=== PATIENT | male | born 1960 | race Caucasian/White ===

== ENCOUNTER 2019-06-30 16:57 | Observation (INO) | payer OTHER ==
[2019-06-30 17:49] LABS: #Basophils 0.1 thou/uL (0.0-0.2); #Eosinphils 0.1 thou/uL (0.0-0.7); #Lymphocytes 3.4 thou/uL (1.20-3.40); #Monocytes 1.1 thou/uL (0.11-0.59); #Neutrophils 5.9 thou/uL (1.40-6.50); %Basophils 0.8 % (0.0-1.0); %Eosinophils 1.1 % (0.0-10.0); %Lymphocytes 31.9 % (21.0-51.0); %Monocytes 10.7 % (0.0-10.0); %Neutrophils 55.5 % (42.0-75.0); Hemoglobin 15.9 g/dL (14.0-18.0); Mean Corpuscular Hemoglobin 30.7 pg (27.0-31.0); Mean Corpuscular Volume 90.2 fL (78.0-98.0); Mean Platelet Volume 8.6 fL (7.4-10.4); Platelet Count 266 thou/uL (130-400); RBC Distribution Width 12.9 % (11.5-14.5); Red Blood Cell (RBC) Count 5.18 mill/uL (4.70-6.10); White Blood Cell (WBC) Count 10.6 thou/uL (4.8-10.8)
[2019-06-30] MEDS ORDERED: Nitroglycerin 2% Ointment 1 INCH/1 GM Packet ONE (17:49)
[2019-06-30] MEDS ORDERED: Aspirin Chewable 81 MG TAB ONE (17:49)
--- NOTE | 2019-06-30 18:06 | RAD ---
EXAM: CHEST ONE VIEW HISTORY: Chest pain and shortness of breath. Low heart rate. Lightheadedness. COMPARISON: 09/05/2015 FINDINGS: Cardiac silhouette is magnified by projection but does appear mildly enlarged. The pulmonary vasculat ure is within normal limits. The lungs are clear. The osseous structures are intact. IMPRESSION: 1. No acute cardiopulmonary process. 2. Mild cardiomegaly.
[2019-06-30 18:09] LABS: ALT (SGPT) 27 U/L (8-55); AST (SGOT) 18 U/L (5-34); Albumin 4.3 g/dL (3.5-5.0); Alkaline Phosphatase 86 U/L (40-110); Anion Gap 15 mmol/L (10-20); BUN (Urea Nitrogen) 17 mg/dL (8.4-25.7); Bilirubin, Total 0.4 mg/dL (0.2-1.2); CK (CPK) 158 U/L (30-200); Calc. Creatinine Clearance 0 mL/min (70-130); Calcium 9.3 mg/dL (7.8-10.44); Carbon Dioxide 23 mmol/L (22-29); Chloride 105 mmol/L (98-107); Estimated GFR-MDRD 57; Globulin 2.6 g/dL (2.4-3.5); Glucose 146 mg/dL (70-105); Lipase 44 U/L (8-78); Potassium 3.8 mmol/L (3.5-5.1); Protein, Total 6.9 g/dL (6.0-8.3); Sodium 139 mmol/L (136-145)
[2019-06-30 20:55] VITALS: BMI 48.9
[2019-06-30] MEDS ORDERED: Ondansetron PF 4 MG/2 ML Vial IVP PRN ×2 (21:18→22:06)
[2019-06-30] MEDS ORDERED: Ondansetron ODT 4 MG TAB SL PRN (21:18)
[2019-06-30] MEDS ORDERED: Acetaminophen 325 MG TAB PO PRN (22:06)
[2019-06-30] MEDS ORDERED: Acetaminophen 650 MG Suppository PR PRN (22:06)
[2019-06-30] MEDS ORDERED: Ondansetron ODT 4 MG TAB PO PRN (22:06)
[2019-06-30] MEDS ORDERED: hydrALAZINE 20 MG/ML VIAL SLOW IVP PRN (22:21)
[2019-06-30] MEDS ORDERED: Dextrose 50% Abboject 50 ML SYRINGE SLOW IVP PRN (22:23)
[2019-06-30] MEDS ORDERED: HumaLOG 300 UNITS/3 ML VIAL SC PRN ×2 (22:23)
[2019-06-30] MEDS ORDERED: Dextrose 5% in Water 1,000 ML IV PRN (22:23)
[2019-06-30 22:24] LABS: Troponin I Less than 0.010 ng/mL (< 0.028)
[2019-06-30 22:54] LABS: Lactic Acid 1.3 mmol/L (0.5-2.2)
[2019-06-30] MEDS: Sodium Chloride 0.9% 1,000 ML IV SCH (23:06)
--- NOTE | 2019-06-30 23:52 | HP ---
CHIEF COMPLAINT: Low heart rate and occasional lightheadedness. HISTORY OF PRESENT ILLNESS: Mr. Aden Pierre is a 59-year-old gentleman, who presented to the emergency department due to concerns of very low heart rate. The patient states he was at home and had felt slightly short of breath, which prompted him to check his pulse ox, which he states was 94% on room air. However, he noted his heart rate was in the low 40s. He went to an urgent care center and had his heart rate checked and again it was in the 40s. The patient states he has felt occasionally lightheaded for the last several weeks. Denies having any chest pain or palpitations. No syncopal episodes. He states he is normally short of breath and has not noted a significant difference recently. Denies any cough or hemoptysis. No recent fevers, chills, or sweats. All other review of systems are negative. His travel pta is Dr. Reeves, whom he has not seen in quite some time according to the patient. In the emergency department, he underwent an EKG, which showed normal sinus rhythm with a heart rate of 79. He was noted to have premature supraventricular complexes with normal ST segments and normal T-waves. According to the ED note, it states that a CT chest was done; however, notes charted and medications were for a completely different patient. This is being corrected by the ED charge nurse. The patient did not undergo any imaging or treatment in the emergency department. He did have laboratory studiesdone, which showed a white count of 10.6, hemoglobin of 15.9, hematocrit of 46.8, platelets 266, and neutrophils 55.5%. D-dimer negative. Sodium 139, potassium 3.8, BUN 17, creatinine 1.30, GFR 57, glucose 146, lactic acid 1.3, calcium 9.3, magnesium 2.3, total bilirubin 0.4, AST 18, ALT 27, alkaline phosphatase 86, and CK 158. Troponin negative x2. BNP 34.3, total protein 6.9, albumin 4.3, and lipase 44. Chest x-ray was done, showing no acute cardiopulmonary process and mild cardiomegaly. PAST MEDICAL HISTORY: 1. Atrial fibrillation. 2. Hypertension. 3. Diabetes mellitus. 4. Obesity. 5. Hyperlipidemia. PAST SURGICAL HISTORY: UVP3, hernia, heart catheterization in 1999 and 2000, tonsillectomy and adenoidectomy. SOCIAL HISTORY: The patient denies any alcohol consumption, tobacco use, or illicit drug use. He lives with his . ALLERGIES: NO KNOWN DRUG ALLERGIES. CURRENT MEDICATIONS: 1. Lotrel. 2. Lipitor. 3. Linagliptin/empagliflozin. 4. Losartan. 5. Metformin. 6. Toprol-XL. PHYSICAL EXAMINATION: GENERAL: The patient appears well-developed, well-nourished, is in no acute distress. VITAL SIGNS: Temperature 98.1, pulse 65, blood pressure 106/59, respirations 16 , and O2 saturation 94% on room air. HEENT: Normocephalic and atraumatic. Pupils are equal, round, and reactive to light. Sclerae icterus. Oropharynx is clear. NECK: Supple without lymphadenopathy. LUNGS: Clear to auscultation bilaterally without wheezes, rales, or rhonchi. CARDIAC: Regular rate and rhythm. ABDOMEN: Soft, obese, nontender, and nondistended. Normoactive bowel sounds present. EXTREMITIES: No lower leg swelling or edema. NEUROLOGIC: Alert and oriented x3. SKIN: Without rash or jaundice. INVESTIGATIONS: As mentioned above in HPI. IMPRESSION AND PLAN: Mr. Pierre is a 59-year-old gentleman, who presents with shortness of breath and symptomatic bradycardia. He has been experiencing occasional lightheadedness. He does not always check his heart rate and he just happened to check it because of slight shortness of breath, requiring him to use his pulse ox. Sats were 94% on room air, and the heart rate had dropped to the 40s. He states his blood pressure is under good control with current regimen and deviating from that causes his blood pressure to go up to the 240s systolic range. The patient is adamant about his heart rate not normally being this low and typically being in the 80s. He did seem to be reluctant about staying in the hospital and is being seen by his travel pta, Dr. Reeves; however, he also expressed concerns about his bradycardia. The patient states it has been a few years since he last saw Dr. Reeves. He is asymptomatic at this present time. We will obtain an echo and orthostatic blood pressures. He will be on continuous telemetry monitoring. Consultation has been placed to Dr. Reeves and we will hold metoprolol for now. Code status, full. His surrogate decision maker is his , Marine Pierre. We will monitor his blood glucose and cover with an insulin sliding scale. We will use p.r.n. hydralazine to help control his blood pressure and resume antihypertensives once verified. Monitor blood pressure. The patient's case was discussed with Dr. Daley, who agrees with plan of care as described above. Job ID: [id number] MTDD
[2019-07-01 01:46] LABS: Troponin I Less than 0.010 ng/mL (< 0.028)
[2019-07-01 04:40] LABS: #Basophils 0.1 thou/uL (0.0-0.2); #Eosinphils 0.2 thou/uL (0.0-0.7); #Lymphocytes 3.5 thou/uL (1.20-3.40); #Monocytes 1.1 thou/uL (0.11-0.59); #Neutrophils 5.1 thou/uL (1.40-6.50); %Basophils 0.5 % (0.0-1.0); %Eosinophils 1.7 % (0.0-10.0); %Lymphocytes 35.5 % (21.0-51.0); %Neutrophils 51.2 % (42.0-75.0); Hemoglobin 14.9 g/dL (14.0-18.0); Mean Corpuscular HGB CONC 32.8 g/dL (32.0-36.0); Mean Corpuscular Hemoglobin 30.2 pg (27.0-31.0); Mean Corpuscular Volume 91.8 fL (78.0-98.0); Mean Platelet Volume 9.1 fL (7.4-10.4); Platelet Count 238 thou/uL (130-400); RBC Distribution Width 13.1 % (11.5-14.5); Red Blood Cell (RBC) Count 4.93 mill/uL (4.70-6.10); White Blood Cell (WBC) Count 9.9 thou/uL (4.8-10.8)
[2019-07-01 04:58] LABS: Anion Gap 15 mmol/L (10-20); BUN (Urea Nitrogen) 17 mg/dL (8.4-25.7); Calc. Creatinine Clearance 198 mL/min (70-130); Carbon Dioxide 22 mmol/L (22-29); Chloride 107 mmol/L (98-107); Estimated GFR-MDRD 78; Glucose 125 mg/dL (70-105); Sodium 140 mmol/L (136-145)
[2019-07-01] MEDS ORDERED: metFORMIN 500 MG TAB PO SCH (08:00)
[2019-07-01] MEDS ORDERED: Famotidine/PF 20 mg/2ml Vial SLOW IVP SCH (09:00)
[2019-07-01] MEDS ORDERED: Losartan 25 MG TAB PO SCH (09:00)
[2019-07-01] MEDS ORDERED: Amlodipine 5 mg/Benazepril 10 mg CAP PO SCH (09:00)
[2019-07-01] MEDS ORDERED: EMPAGLIFLOZIN PO SCH (09:00)
[2019-07-01] MEDS ORDERED: Atorvastatin Calcium 20 MG TAB PO SCH (09:00)
[2019-07-01] MEDS ORDERED: [UNRECOGNIZED DRUG - OTHER] PO SCH (09:00)
[2019-07-01] MEDS ORDERED: LINAGLIPTIN PO SCH (09:00)
--- NOTE | 2019-07-01 12:18 | CON ---
DATE OF CONSULTATION: 07/01/2019 INDICATION FOR CONSULTATION: A 59-year-old gentleman with bradycardia. HISTORY OF PRESENT ILLNESS: This 59-year-old gentleman said he had some heart rates in the 40s at home. He went to the urgent care center and also the heart rate was still in the 40s. He was sent to the emergency room. In the emergency room showed a heart rate in the 70s. He did complain of some lightheadedness and always says he is short of breath, but with the heart rate in the 40s, he did become more lightheaded. He did undergo cardiac catheterization in 2006, which showed small vessels. The LAD had no stenosis. It was a small vessel. The left circumflex also was a small vessel, had a 40% mid stenosis and distal stenosis of 50%. The right coronary was a large vessel with 20% stenosis. The left ventricular function was normal. He apparently had an echocardiogram several years ago in the office, which was also apparently normal. He has not been complaining of any chest discomfort. He does have hypertension as well as diabetes. PAST MEDICAL HISTORY: Significant for atrial fibrillation. He has had a hernia repair. He had a cardiac catheterization in 2000. He has a history of tonsils and adenoidectomy, has a history of hypertension, hypercholesterolemia. He has had cataract surgery. 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 SOCIAL HISTORY: He has no alcohol or tobacco abuse. FAMILY HISTORY: Noncontributory. ALLERGIES: NONE. MEDICATIONS: Prior to admission include metoprolol 100 mg once a day, metformin 750 mg b.i.d., amlodipine/benazepril or Lotrel 5/10 once a day. He is also taking Cozaar or losartan 50 mg a day and atorvastatin 20 mg a day. ALLERGIES: NONE. REVIEW OF SYSTEMS: A 12-point review of systems unremarkable except noted in the history of present illness. PHYSICAL EXAMINATION: GENERAL: Reveals a middle-aged morbidly obese gentleman. VITAL SIGNS: Blood pressure is 128/82, earlier was 106/59, heart rate is 60 and regular. He has been anywhere between 50-65 since being on the floor. Respiratory rate is 14. He is afebrile. HEENT: Shows head to be normocephalic and atraumatic. NECK: Carotid pulses are present. Did not hear any bruits. There is no obvious JVD. CHEST: Clear to auscultation. CARDIOVASCULAR: Reveals a regular rate and rhythm at this time. I do not hear any gross murmurs, heaves, thrills, bruits, or rubs. ABDOMEN: Shows morbid obesity. I am unable to palpate any tenderness or masses. EXTREMITIES: Show no clubbing, cyanosis, or edema. Pedal pulses are present. NEUROLOGIC: The patient appears to be fully intact. There are no gross focal motor deficits noted. SKIN: Warm and dry. DIAGNOSTIC STUDIES: EKG shows a normal sinus rhythm with an incomplete right bundle-branch block and occasional PACs. LABORATORY DATA: Shows a WBC of 9.9, hemoglobin 14.9, BUN was 17, creatinine is 0.98, potassium was 4, and sodium was 140, and blood sugar was 125. IMPRESSION: 1. Elderly gentleman with a history of coronary artery disease, diabetes, hypertension, hypercholesterolemia, who has now developed some bradycardia, which may be due to the dose of the metoprolol. We will certainly decrease the dose of metoprolol. He is somewhat reluctant to stop this medication due to his history of atrial fibrillation in the past. He thinks he may have had occasional short episodes of atrial fibrillation since it was diagnosed back in 2000. He has not had any other antiarrhythmics. He did have evaluation by steaming cabinet tender many years ago and there was some consideration given to an ablation, but after reconsideration, the ablation was not done and he has been maintained on medical management. At this time, I would at least decrease the dose of the metoprolol and see whether or not the heart rate will improve. He may need to stop the beta queenie and try another medication. However, with his history of coronary artery disease, we will try to continue the beta blockers. He may need to also undergo stress testing or cardiac catheterization due to his history of small vessel disease in the past as well as the stenosis noted in the left circumflex and right coronary artery, which was performed almost 13 years ago. We will first obtain an echocardiogram for evaluation of left ventricular systolic function and then we will await the results of this and then make decisions as to whether or not he will need to proceed with cardiac catheterization. He is 381 pounds, it is somewhat difficult to do stress testing. Obviously, would have to be a nuclear study, will be a 2-day protocol. It may be best to proceed with cardiac catheterization in this gentleman as a more definitive tool to evaluate for coronary artery disease. 2. History of diabetes. This is dealt with by the primary care service. 3. Hypertension, this is under good control at this time. We may need to change or find some other medication to control the blood pressure. We can always increase his amlodipine and benazepril. We could also increase the dose of the Cozaar in order to control the blood pressure. We would certainly hold off on calcium blockers, at least dihydropyridine as this may also lower the heart rate further. 4. Morbid obesity. The patient should be advised to seek dietary consult to lower his overall morbid obesity. 5. Incomplete right bundle-branch block. I believe this has been present in the past. According to the patient, he was noted to have a conduction problem already. Further care and recommendation will depend on the results of the echocardiogram. Job ID: [id number]
[2019-07-01 12:43] VITALS: TEMP 97.6
[2019-07-01] MEDS: Sodium Chloride 0.9% 1,000 ML IV SCH (13:57)
--- NOTE | 2019-07-01 15:37 | PDOC.HOSPP ---
- Subjective Encounter Date: 07/01/19 Encounter Time: 11:00 Subjective: Pt seenf ro followup re; bradycardia. Feels well, no complaints. - Objective Vital Signs & Weight: Vital Signs (12 hours) Temp Pulse Resp BP Pulse Ox 07/01/19 11:11 97.6 F 63 16 128/74 94 L 07/01/19 07:49 97.5 F L 60 14 128/82 93 L Weight Weight 381 lb 3.2 oz Result Diagrams: 07/01/19 03:42 07/01/19 03:42 Additional Labs: Accuchecks 07/01/19 06/30/19 11:12 22:56 POC Glucose 113 H 126 H labs and MARs reviewed by me EKG Reviewed by me: Yes (Tele: NSR) Hospitalist ROS - Review of Systems Cardiovascular: denies: chest pain, palpitations, orthopnea, paroxysmal noc. dyspnea, edema, light headedness Gastrointestinal: denies: nausea, vomiting, abdominal pain, diarrhea, constipation, melena, hematochezia - Medication Medications: Active Medications Generic Name Dose Route Start Last Admin Trade Name Freq PRN Reason Stop Dose Admin Amlodipine/Benazepril HCl 1 cap 07/01/19 09:00 07/01/19 08:52 Lotrel 5/10 PO 1 cap DAILY GLENROY Administration Atorvastatin Calcium 20 mg 07/01/19 09:00 07/01/19 08:51 Lipitor PO 20 mg DAILY GLENROY Administration Famotidine 20 mg 07/01/19 09:00 07/01/19 08:52 Pepcid SLOW IVP 20 mg Q12HR GLENROY Administration Sodium Chloride 1,000 mls @ 70 mls/hr 06/30/19 22:30 07/01/19 13:57 Normal Saline 0.9% IV Not Given .[id number] GLENROY Losartan Potassium 50 mg 07/01/19 09:00 07/01/19 08:51 Cozaar PO 50 mg DAILY GLENROY Administration Metformin HCl 750 mg 07/01/19 08:00 07/01/19 08:43 Glucophage PO Not Given BID-WM GLENROY - Exam General - other findings: Morbid obesity Eye: anicteric sclera ENT: moist mucosa Neck: supple, no JVD Heart: RRR Respiratory: CTAB Gastrointestinal: soft, non-tender Extremities: no edema Neurological: no weakness Psychiatric: normal affect, normal behavior Hosp A/P (1) Bradycardia Code(s): R00.1 - BRADYCARDIA, UNSPECIFIED Status: Acute (2) HTN (hypertension) Code(s): I10 - ESSENTIAL (PRIMARY) HYPERTENSION Status: Chronic (3) Dyslipidemia Code(s): E78.5 - HYPERLIPIDEMIA, UNSPECIFIED Status: Chronic (4) DM2 (diabetes mellitus, type 2) Status: Chronic - Plan Beta queenie dose decreased. HTN controlled. Likely home later today.
[2019-07-01 16:24] VITALS: BP 132/92
--- NOTE | 2019-07-01 19:35 | DIS ---
DATE OF ADMISSION: 06/30/2019 DATE OF DISCHARGE: 07/01/2019 DISCHARGE DIAGNOSIS: Bradycardia. CONDITION OF PATIENT ON THE DAY OF DISCHARGE: Stable. I assessed Mr. Pierre on the day of discharge. He denies any chest pain or shortness of breath. Vital signs are stable. S1 and S2 are heard, regular. Lungs are clear to auscultation bilaterally. DISCHARGE MEDICATIONS: Toprol-XL dose has been decreased to 50 mg daily. Otherwise, the rest of his home medications are continued, which include: 1. Lotrel 5/10 mg daily. 2. Lipitor 20 mg daily. 3. Glyxambi 25/5 mg daily. 4. Losartan 50 mg daily. 5. Metformin 750 mg 2 times a day. PRIMARY CARE PROVIDER: Dr. Raymond Rojas. POST-DISCHARGE FOLLOWUP: The patient is advised to follow up with primary care provider in 3 to 5 days' time and with Cardiology Dr. Reeves in 2 weeks' time. HOSPITAL COURSE: Mr. Pierre is a pleasant 59-year-old gentleman, who was admitted to [facility] on 06/30/2019, for bradycardia. He was seen by Cardiology Service. He underwent 2D echocardiogram, which showed left ventricular ejection fraction of 60% to 65%, probable diastolic dysfunction, normal right ventricular size and function, moderately dilated left atrium, normal size of right atrium, trace mitral regurgitation, and mildly thickened aortic valve leaflets. He also had mild tricuspid regurgitation. It was recommended that his beta queenie dose be decreased in half. He is being fitted with an event monitor prior to discharge home. Many thanks for allowing me to participate in your patient's care. Please feel free to contact me with any questions or concerns. DISCHARGE DESTINATION: Home. LABORATORY DATA: On the day of discharge, he has sodium 140, potassium 4.0, creatinine 0.98. White count 9900, hemoglobin 14.9, and platelet count 238,000. DIET: Heart healthy and diabetic diet. ACTIVITY: As tolerated. Job ID: [id number]
== END 2019-07-01 16:24 | disposition home or self-care (01) ==
LOC: ERS 16:57 → 2SW 18:20
PROVIDERS: ADMIT Internal Medicine; ATTEND Internal Medicine
DX: R00.1 Bradycardia, unspecified (principal); R42 Dizziness and giddiness; R06.02 Shortness of breath; I48.91 Unspecified atrial fibrillation; I10 Essential (primary) hypertension; E11.9 Type 2 diabetes mellitus without complications; E78.5 Hyperlipidemia, unspecified; E78.00 Pure hypercholesterolemia, unspecified; I45.10 Unspecified right bundle-branch block; I08.1 Rheumatic disorders of both mitral and tricuspid valves; E66.01 Morbid (severe) obesity due to excess calories; Z68.42 Body mass index [BMI] 45.0-49.9, adult; Z79.84 Long term (current) use of oral hypoglycemic drugs; Z79.899 Other long term (current) drug therapy
CPT/HCPCS: 36415; 36416; 71045; 80048; 80053; 82550; 83605; 83690; 83735; 83880; 84484; 85025; 85379; 93005; 93306; 96360; 96361; 96374; G0378; S0028

== ENCOUNTER 2019-08-11 20:30 | Outpatient (CLI) | payer OTHER | END 2019-08-11 20:31 | disposition home or self-care (01) | LOC: SLEEPLAB 20:30 | PROVIDERS: ATTEND Family Medicine | DX: G47.33 Obstructive sleep apnea (adult) (pediatric) (principal); R53.83 Other fatigue; G47.10 Hypersomnia, unspecified; I10 Essential (primary) hypertension; E11.9 Type 2 diabetes mellitus without complications; G47.00 Insomnia, unspecified | CPT/HCPCS: 95811 ==